=== PATIENT | female | born 1985 | race African-American/Black ===

== ENCOUNTER 2018-03-10 12:30 | Emergency (ER) | payer OTHER, MEDICAID ==
[~2018-03-10] VITALS: Ht 170.2 cm; Wt 150.0 kg
[2018-03-10 13:02] VITALS: BP 130/65; PULSE 106; RESP 24; TEMP 97.6; O2SAT 99
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
[2018-03-10] MEDS ORDERED: ROBA500T PO (15:12)
[2018-03-10] MEDS ORDERED: IBUP1TAB7 PO (15:12)
[2018-03-10] MEDS ORDERED: ORPHENADRINE INJ 60 MG/2 ML AMP IM ONE (15:15)
[2018-03-10] MEDS ORDERED: KETOROLAC TROMETHAMINE 60 MG/2 ML (IM) VIAL IM ONE (15:15)
== END 2018-03-10 15:33 | disposition home or self-care (01) ==
LOC: NEPK 12:30
DX: S16.1XXA Strain of muscle, fascia and tendon at neck level, initial encounter (principal); M25.512 Pain in left shoulder; V43.52XA Car driver injured in collision with other type car in traffic accident, initial encounter
CPT/HCPCS: 71046; 73030; 84703; 96372; 99283; J1885; J2360